=== PATIENT | female | born 1980 | race Hispanic/Latino ===

== ENCOUNTER 2018-01-13 01:46 | Emergency (ER) | payer BC, OTHER ==
[2018-01-13] MEDS ORDERED: METHYLPREDNISOLONE 125 MG INJ ONE (02:22)
[2018-01-13] MEDS ORDERED: IPRATROPIUM BROM 0.5MG/2.5ML ONE (02:23)
[2018-01-13] MEDS ORDERED: ALBUTEROL 2.5 MG/3 ML NEB SOL ONE (02:23)
--- NOTE | 2018-01-13 02:33 | EDPHYS ---
Physician Documentation [facility] Name: Noy Quinn Age: 37 yrs Sex: Female : 1980 Arrival Date: 01/13/2018 Time: 01:47 Bed 14 Private MD: ED Physician Duane Oconnell HPI: 01/13 02:01 This 37 yrs old Female presents to ER via Unassigned with complaints of cp Allergic Reaction. 02:01 The patient presents with rash, of the chest. cp Historical: - Allergies: 01:47 NKDA; cc3 - Home Meds: 01:47 None [Active]; cc3 - PMHx: 01:47 None; cc3 - PSHx: 01:47 None; cc3 - Immunization history:: Adult Immunizations not up to date. - Social history:: Smoking status: Patient/guardian denies using tobacco, never smoked. - Ebola Screening: : No symptoms or risks identified at this time. ROS: 02:05 Constitutional: Negative for body aches, chills, fever, poor PO intake. cp 02:05 Eyes: Negative for injury, pain, redness, and discharge. cp 02:05 ENT: Negative for drainage from ear(s), ear pain, sore throat, difficulty swallowing, difficulty handling secretions. 02:05 Cardiovascular: Negative for chest pain, edema, palpitations. 02:05 Respiratory: Positive for shortness of breath, Negative for cough, wheezing. 02:05 Abdomen/GI: Negative for abdominal pain, nausea, vomiting, and diarrhea. 02:05 Skin: Positive for rash, of the chest. 02:05 Neuro: Negative for headache, syncope, near syncope, weakness. 02:05 All other systems are negative. Exam: 02:08 Constitutional: The patient appears in no acute distress, alert, awake, non-toxic, well cp developed, well nourished. 02:08 Head/Face: Normocephalic, atraumatic. cp 02:08 Eyes: Periorbital structures: appear normal, Conjunctiva: normal, no exudate, no injection, Sclera: no appreciated abnormality, Lids and lashes: appear normal, bilaterally. 02:08 ENT: External ear(s): are unremarkable, Ear canal(s): are normal, clear, TM's: bulging, is not appreciated, bilaterally, dullness, bilaterally, erythema, is not appreciated, bilaterally, Nose: is normal, Mouth: Lips: moist, Oral mucosa: pink and intact, moist, Posterior pharynx: Airway: no evidence of obstruction, patent, Tonsils: are normal in appearance, Uvula: midline, non-edematous, no erythema, swelling, is not appreciated, erythema, is not appreciated, exudate, is not appreciated, Voice: is normal. 02:08 Neck: ROM/movement: is normal, is supple, without pain, no range of motions limitations, no nuchal rigidity. 02:08 Chest/axilla: Inspection: rash, that is moderate, Palpation: is normal, no crepitus, no tenderness. 02:08 Cardiovascular: Rate: normal, Rhythm: regular. 02:08 Respiratory: the patient does not display signs of respiratory distress, Respirations: normal, no use of accessory muscles, no retractions, no splinting, no tachypnea, Breath sounds: are clear throughout, no decreased breath sounds, no stridor, no wheezing. 02:08 Abdomen/GI: Exam negative for discomfort, distension, guarding, Inspection: abdomen appears normal. 02:08 Skin: consistent with urticaria, on the chest. 02:08 Neuro: Orientation: to person, place \T\ time. Mentation: lucid, able to follow commands, Cerebellar function: is grossly normal, Motor: moves all fours, strength is normal, Sensation: no obvious gross deficits. Vital Signs: 01:47 BP 126 / 83; Pulse 71; Resp 20 S; Pulse Ox 98% on R/A; Weight 72.57 kg; Height 5 ft. 2 cc3 in. (157.48 cm); 02:45 BP 117 / 76; Pulse 76; Resp 18; Pulse Ox 100% on R/A; jb4 03:15 BP 116 / 80; Pulse 76; Resp 18; Pulse Ox 100% on R/A; jb4 01:47 Body Mass Index 29.26 (72.57 kg, 157.48 cm) cc3 MDM: 01:55 Patient medically screened. cp 02:31 Data reviewed: vital signs, nurses notes. cp 02:31 Counseling: I had a detailed discussion with the patient and/or guardian regarding: the cp historical points, exam findings, and any diagnostic results supporting the discharge/admit diagnosis, to return to the emergency department if symptoms worsen or persist or if there are any questions or concerns that arise at home. Response to treatment: the patient's symptoms have mildly improved after treatment, and as a result, I will discharge patient. 01/13 02:19 Order name: Urine Dipstick--Ancillary (enter results) ms 01/13 02:01 Order name: Urine Test (obtain specimen); Complete Time: 02:18 cp Administered Medications: 02:22 Drug: SOLU-Medrol 125 mg Route: IM; Site: right gluteus; jb4 03:30 Follow up: Response: No adverse reaction jb4 02:22 Drug: Albuterol 2.5 mg Route: Inhalation; jb4 03:30 Follow up: Response: No adverse reaction jb4 02:22 Drug: AtroVENT Aerosol 0.5 mg Route: Inhalation; jb4 03:31 Follow up: Response: No adverse reaction jb4 03:03 Drug: Pepcid 20 mg Route: PO; jb4 03:31 Follow up: Response: No adverse reaction jb4 Disposition: 06:44 Co-signature as Attending Physician, Duane Oconnell MD I agree with the assessment and [facility] plan of care. Disposition: 01/13/18 02:32 Discharged to Home. Impression: Urticaria, unspecified. - Condition is Stable. - Discharge Instructions: Hives. - Prescriptions for Pepcid 20 mg Oral Tablet - take 1 tablet by ORAL route every 12 hours for 5 days; 10 tablet. Prednisone 20 mg Oral Tablet - take 2 tablet by ORAL route once daily for 5 days; 10 tablet. Albuterol Sulfate 90 mcg/actuation - inhale 1-2 puff by INHALATION route every 4-6 hours; 1 Inhaler. - Medication Reconciliation Form, Thank You Letter, Antibiotic Education, Prescription Opioid Use form. - Follow up: Private Physician; When: 2 - 3 days; Reason: Recheck today's complaints. - Problem is new. - Symptoms have improved. Signatures: Dispatcher [employer] Duane Vu MD MD cha Page, Corey, PA PA cp Bryson, James, RN RN jb4 Chelle Turner cc3 Corrections: (The following items were deleted from the chart) 03:30 02:32 01/13/2018 02:32 Discharged to Home. Impression: Urticaria, unspecified. jb4 Condition is Stable. Forms are Medication Reconciliation Form, Thank You Letter, Antibiotic Education, Prescription Opioid Use. Follow up: Private Physician; When: 2 - 3 days; Reason: Recheck today's complaints. Problem is new. Symptoms have improved. cp
--- NOTE | 2018-01-13 02:33 | ER ---
Nurse's Notes [facility] Name: Noy Quinn Age: 37 yrs Sex: Female : 1980 Arrival Date: 01/13/2018 Time: 01:47 Bed 14 Private MD: Diagnosis: Urticaria, unspecified Presentation: 01/13 01:47 Presenting complaint: Patient states: redness and itchiness over the patient's neck and cc3 bilateral shoulders and arms since 1 day. Transition of care: patient was not received from another setting of care. Onset: The symptoms/episode began/occurred yesterday. Anaphylaxis evaluation, patient states that she feels "something is blocked in her throat". Onset of symptoms was January 12, 2018. Risk Assessment: Do you want to hurt yourself or someone else? Patient reports no desire to harm self or others. Initial Sepsis Screen: Does the patient meet any 2 criteria? No. Patient's initial sepsis screen is negative. Does the patient have a suspected source of infection? No. Patient's initial sepsis screen is negative. Care prior to arrival: None. 01:47 Method Of Arrival: Ambulatory cc3 01:47 Acuity: MARIANNE 3 cc3 Triage Assessment: 01:47 General: Appears in no apparent distress. comfortable, Behavior is calm, cooperative, cc3 appropriate for age. Pain: Denies pain. EENT: Throat patient states that she feels something is blocked in her throat. Neuro: Level of Consciousness is awake, alert, obeys commands, Oriented to person, place, time, situation, Appropriate for age. Cardiovascular: Denies chest pain. Respiratory: Airway is patent Respiratory effort is even, unlabored, Respiratory pattern is regular, symmetrical. GI: Abdomen is round non-distended. : No signs and/or symptoms were reported regarding the genitourinary system. Derm: Reports itching, and rash over the neck, bilateral shoulders and arms since yesterday. Musculoskeletal: No signs and/or symptoms reported regarding the musculoskeletal system. Historical: - Allergies: :47 NKDA; cc3 - Home Meds: :47 None [Active]; cc3 - PMHx: :47 None; cc3 - PSHx: :47 None; cc3 - Immunization history:: Adult Immunizations not up to date. - Social history:: Smoking status: Patient/guardian denies using tobacco, never smoked. - Ebola Screening: : No symptoms or risks identified at this time. Screenin:00 Abuse screen: Denies threats or abuse. Nutritional screening: No deficits noted. jb4 Tuberculosis screening: Fall Risk None identified. Assessment: 01:55 General: Appears in no apparent distress. uncomfortable, Behavior is calm, cooperative, jb4 appropriate for age. Pain: Denies pain. Neuro: Level of Consciousness is awake, alert, obeys commands, Oriented to person, place, time, situation. Cardiovascular: Heart tones S1 S2 present Patient's skin is warm and dry. Respiratory: Airway is patent Trachea midline Respiratory effort is even, unlabored, Respiratory pattern is regular, symmetrical, Breath sounds are clear bilaterally. GI: No signs and/or symptoms were reported involving the gastrointestinal system. : EENT: No signs and/or symptoms were reported regarding the EENT system. Derm: Skin is intact, Skin is pink, warm \\T\\ dry. Rash noted that is itchy, red, on chest. Musculoskeletal: Circulation, motion, and sensation intact. 03:00 Reassessment: Patient appears in no apparent distress at this time. Patient and/or jb4 family updated on plan of care and expected duration. Pain level reassessed. Patient is alert, oriented x 3, equal unlabored respirations, skin warm/dry/pink. Patient states feeling better. Patient states symptoms have improved. Vital Signs: 01:47 BP 126 / 83; Pulse 71; Resp 20 S; Pulse Ox 98% on R/A; Weight 72.57 kg; Height 5 ft. 2 cc3 in. (157.48 cm); 02:45 BP 117 / 76; Pulse 76; Resp 18; Pulse Ox 100% on R/A; jb4 03:15 BP 116 / 80; Pulse 76; Resp 18; Pulse Ox 100% on R/A; jb4 01:47 Body Mass Index 29.26 (72.57 kg, 157.48 cm) cc3 ED Course: 01:47 Patient arrived in ED. am2 01:55 Duane Hagan PA is PHCP. cp 01:55 Duane Oconnell MD is Attending Physician. cp 02:00 Patient has correct armband on for positive identification. Bed in low position. Call jb4 light in reach. Side rails up X 1. Pulse ox on. NIBP on. 02:00 Arm band placed on left wrist. jb4 02:10 Triage completed. cc3 02:11 Gibran Villanueva, RN is Primary Nurse. jb4 03:28 No provider procedures requiring assistance completed. jb4 03:28 Patient did not have IV access during this emergency room visit. jb4 Administered Medications: 02:22 Drug: SOLU-Medrol 125 mg Route: IM; Site: right gluteus; jb4 03:30 Follow up: Response: No adverse reaction jb4 02:22 Drug: Albuterol 2.5 mg Route: Inhalation; jb4 03:30 Follow up: Response: No adverse reaction jb4 02:22 Drug: AtroVENT Aerosol 0.5 mg Route: Inhalation; jb4 03:31 Follow up: Response: No adverse reaction jb4 03:03 Drug: Pepcid 20 mg Route: PO; jb4 03:31 Follow up: Response: No adverse reaction jb4 Outcome: 02:32 Discharge ordered by . cp 03:28 Discharged to home ambulatory. jb4 03:28 Condition: stable 03:28 Discharge instructions given to patient, Instructed on discharge instructions, follow up and referral plans. medication usage, Demonstrated understanding of instructions, follow-up care, medications, Prescriptions given X 3. 03:30 Patient left the ED. jb4 Signatures: Duane Hagan PA PA cp Gibran Villanueva, RN RN jb4 Amy Reilly am2 Chelle Turner cc3
[2018-01-13] MEDS ORDERED: FAMOTIDINE 20 MG TAB ONE (03:05)
[2018-01-13 05:43] LABS: Urine Blood 1+ (NEG); Urine Glucose NEGATIVE (NEG); Urine Protein NEGATIVE (NEG); Urine pH 5.5 (5.0-7.0)
== END 2018-01-13 03:30 | disposition home or self-care (01) ==
LOC: ER 01:46
DX: L50.9 Urticaria, unspecified (principal)
CPT/HCPCS: 81003; 96372; 99284; J2930